=== PATIENT | male | born 1975 | race Caucasian/White ===

== ENCOUNTER 2016-05-17 19:16 | Emergency (ER) | payer OTHER ==
[2016-05-17 21:15] VITALS: BP 128/87
== END 2016-05-17 21:15 | disposition home or self-care (01) ==
LOC: ED 19:16
DX: S60.460A Insect bite (nonvenomous) of right index finger, initial encounter (principal); L03.011 Cellulitis of right finger; W57.XXXA Bitten or stung by nonvenomous insect and other nonvenomous arthropods, initial encounter; Y93.89 Activity, other specified; Y92.89 Other specified places as the place of occurrence of the external cause; Y99.8 Other external cause status
CPT/HCPCS: 90715; J1100

== ENCOUNTER 2016-11-29 12:27 | Emergency (ER) | payer OTHER ==
[2016-11-29 14:50] VITALS: BP 152/106
== END 2016-11-29 14:50 | disposition short-term general hospital (02) ==
LOC: ED 12:27
DX: S02.609B Fracture of mandible, unspecified, initial encounter for open fracture (principal); S01.81XA Laceration without foreign body of other part of head, initial encounter; W20.8XXA Other cause of strike by thrown, projected or falling object, initial encounter; Y93.H3 Activity, building and construction; Y99.8 Other external cause status; Y92.69 Other specified industrial and construction area as the place of occurrence of the external cause
CPT/HCPCS: 90715; J1170; J2405; J2543; J3490